=== PATIENT | male | born 1970 | race African-American/Black ===

== ENCOUNTER 2017-10-26 12:04 | Observation (INO) ==
--- NOTE | 2017-10-26 12:42 | Emergency Department Note ---
Disposition Clinical Impression: Chest pain, pleuritic, Shortness of breath Community acquired pneumonia Qualifiers: Laterality: right Lung location: lower lobe of lung Qualified Code(s): J18.1 - Lobar pneumonia, unspecified organism Disposition: Admitted As Inpatient Condition: Good Referrals: Triston José MD [Primary Care Provider] - Forms: ED Satisfaction Letter Time of Disposition: 15:53 SOB HPI - General Chief Complaint: ED Shortness of Breath/Dyspnea Stated Complaint: SOB/CARLA Time Seen by Provider: 10/26/17 12:15 Source: patient, family Limitations: no limitations Nursing Notes Reviewed: Yes Vital Signs Reviewed: Yes - History of Present Illness This is a 47-year-old male who comes to emergency department stating that he became short of breath about 90 minutes prior to arrival. No prior similar symptoms. He also reports pleuritic chest pain that started 90 minutes prior to arrival. No nausea or vomiting. Pt Subjective Complaint: shortness of breath - Related Data Home Medications Medication Instructions Recorded Confirmed Lisinopril 05/26/16 05/26/16 Metformin 05/26/16 Previous Rx's Medication Instructions Recorded Mupirocin [Bactroban Oint] 1 appl NS BID #1 tube 05/26/16 Allergies Allergy/AdvReac Type Severity Reaction Status Date / Time shellfish derived Allergy Rash Verified 10/26/17 12:06 Sulfa (Sulfonamide Allergy Hives Verified 08/31/17 17:20 Antibiotics) All systems ED: reviewed and negative except as stated. Constitutional: Denies: fever, chills, weakness, weight change Eyes: Denies: eye pain, eye discharge, vision change Cardiovascular: Reports: chest pain Respiratory: Reports: dyspnea Gastrointestinal: Denies: abdominal pain, nausea, vomiting, diarrhea, constipation, hematemesis, melena, hematochezia Genitourinary: Denies: urgency, dysuria, frequency, hematuria Musculoskeletal: Denies: back pain, neck pain, arthralgia, myalgia Integumentary: Denies: rash, abrasion, lesions Neurological: Denies: headache, weakness, numbness, paresthesias, confusion, abnormal gait, vertigo Psychiatric: Denies: anxiety, depression, suicidal thoughts, homicidal thoughts , auditory hallucinations, visual hallucinations Endocrine: Reports: as per HPI Hematological/Lymphatic: Denies: easy bleeding, easy bruising Past Medical History - Past Medical History Medical history: Reports: diabetes, hyperlipidemia, hypertension - Social History Smoking Status: Never smoker Smokeless Tobacco Status: No Alcohol use: Reports: none Drug use: Reports: none Physical Exam - General Limitations: no limitations General appearance: alert, in no apparent distress - Head Head exam: atraumatic, normocephalic, normal inspection - Eye Eye exam: Present: normal appearance, PERRL, EOMI - ENT ENT exam: normal exam, normal oropharynx, mucous membranes moist - Neck Neck exam: Present: normal inspection, full ROM, trachea midline - Chest Chest inspection: Present: normal inspection, symmetric chest wall rise - Respiratory Respiratory exam: Present: normal lung sounds bilaterally - Cardiovascular Cardiovascular exam: Present: regular rate, normal rhythm, normal heart sounds - Abdominal Exam Abdominal exam: Present: soft, Non-Tender. Absent: tenderness, distention, guarding, rebound, rigidity - Extremities Exam Extremities exam: Present: normal inspection, full ROM. Absent: tenderness, pedal edema - Neurological Exam Neurological exam: Present: alert, oriented X3 - Psychiatric Psychiatric exam: Present: normal affect, normal mood - Skin Skin exam: Present: warm, dry, intact, normal color Course Course Narrative: This is a 47-year-old male with pleuritic chest pain and shortness of breath started 90 minutes prior to arrival. Concern for either a cardiac or pulmonary etiology. Vital Signs Temperature 97.8 F 10/26/17 12:06 Pulse Rate 97 10/26/17 12:06 Respiratory Rate 20 10/26/17 12:06 Blood Pressure 149/91 10/26/17 12:06 O2 Sat by Pulse Oximetry 97 10/26/17 12:06 Temperature 97.8 F 10/26/17 12:06 Pulse Rate 102 10/26/17 15:25 Respiratory Rate 16 10/26/17 15:05 Blood Pressure 133/84 10/26/17 12:31 O2 Sat by Pulse Oximetry 97 10/26/17 15:25 Oxygen Delivery Oxygen Delivery Nasal Cannula Shortness of Breath/Dyspnea - [facility] Narrative Medical decision making narrative: This is a 47-year-old male with risk factors of hypertension and diabetes with an episode of shortness of breath with pleuritic chest pain. His initial troponin was low His d-dimer was low, making pulmonary embolism unlikely Because of the dominance of his pleuritic pain, a CT chest was obtained which showed no evidence for aortic pathology and lower lobe pneumonitis. Ceftriaxone and doxycycline were given for possible community-acquired pneumonia I discussed his case with the on-call hospitalist, who admitted him for observation for a chest pain rule out. - Lab Data Lab results reviewed: Yes I reviewed the patient's lab results. Lab results narrative: CBC BMP unremarkable troponin low d-dimer low Result diagrams: 10/26/17 12:29 10/26/17 12:29 Lab Results 10/26/17 10/26/17 10/26/17 Range/Units 12:29 12:29 12:29 WBC 10.3 (4.3-11.1) K/mcL RBC 5.47 (4.19-5.50) M/mcL Hgb 14.9 (12.9-16.9) g/dL Hct 44.9 (37.5-50.1) % MCV 82.1 L (83.0-100.0) fL MCH 27.2 L (28.0-33.3) pg MCHC 33.2 (31.6-35.5) g/dL RDW 12.2 (11.5-14.5) % Plt Count 232 (140-400) K/mcL MPV 10.1 (9.4-12.4) fL Immature Gran % 0.2 (0-4) % Seg Neutrophils % 74.6 % Lymphocytes % 17.3 % Monocytes % 6.4 % Eosinophils % 1.3 % Basophils % 0.2 % Neutrophils # 7.7 (1.6-8.9) K/mcL Lymphocytes # 1.8 (0.6-4.6) K/mcL Monocytes # 0.7 (0.0-1.3) K/mcL Eosinophils # 0.1 (0.0-0.6) K/mcL Basophils # 0.0 (0.0-0.2) K/mcL D-Dimer < 215 (0-500) ng/mLFEU Sodium 137 (136-145) mEq/L Potassium 4.0 (3.5-5.1) mEq/L Chloride 104 (98-107) mEq/L Carbon Dioxide 24 (23-29) mEq/L BUN 22 H (6-20) mg/dL Creatinine 1.14 (0.70-1.30) mg/dL Est GFR ( Amer) > 60 (> 60) Est GFR (Non-Af Amer) > 60 (> 60) BUN/Creatinine Ratio 19 (6-26) Glucose 176 H (70-105) mg/dL Calculated Osmolality 292 (280-300) Calcium 10.0 (8.6-10.3) mg/dL Troponin I < 0.03 (< 0.04) ng/mL - Radiology Data Radiology results reviewed: Yes I reviewed the patient's radiology results. CT chest showed possible pneumonitis in the bases of both lungs, no apparent aortic pathology - EKG Data EKG attestation: Yes I reviewed and interpreted this EKG. EKG results narrative: EKG shows sinus, 94 bpm, normal intervals, normal axis, low signal level in leads 2, 3, and aVF, no ST or T-wave abnormality
[2017-10-26 12:50] LABS: Basophils % 0.2 %; Eosinophils # 0.1 K/mcL (0.0-0.6); Eosinophils % 1.3 %; Hematocrit 44.9 % (37.5-50.1); Hemoglobin 14.9 g/dL (12.9-16.9); Immature Granulocytes % 0.2 % (0-4); Lymphocytes # 1.8 K/mcL (0.6-4.6); Lymphocytes % 17.3 %; Mean Corpuscular HGB Conc 33.2 g/dL (31.6-35.5); Mean Corpuscular Hemoglobin 27.2 pg (28.0-33.3); Mean Corpuscular Volume 82.1 fL (83.0-100.0); Mean Platelet Volume 10.1 fL (9.4-12.4); Monocytes # 0.7 K/mcL (0.0-1.3); Monocytes % 6.4 %; Neutrophils # 7.7 K/mcL (1.6-8.9); Platelet Count 232 K/mcL (140-400); Red Blood Count 5.47 M/mcL (4.19-5.50); Red Cell Distribution Width 12.2 % (11.5-14.5); Segmented Neutrophils % 74.6 %
[2017-10-26 13:08] LABS: BUN/Creatinine Ratio 19 (6-26); Blood Urea Nitrogen 22 mg/dL (6-20); Carbon Dioxide 24 mEq/L (23-29); Chloride 104 mEq/L (98-107); Glucose 176 mg/dL (70-105); Osmolality,Calculated 292 (280-300); Sodium 137 mEq/L (136-145); Troponin I < 0.03 ng/mL (< 0.04); eGFR For Non-African Americans > 60 (> 60)
[2017-10-26] MEDS ORDERED: Isovue-370 500 ML INFUS..BTL IV ONE (14:31)
[2017-10-26] MEDS ORDERED: Ipratropium/Albuterol Neb 3 ML IH ONE (14:32)
[2017-10-26] MEDS ORDERED: Doxycycline 100 MG CAPSULE PO ONE (15:32)
[2017-10-26] MEDS ORDERED: cefTRIAXone 1,000 MG in Water for inj. (sterile) 20 ML 10 ML IVP ONE (15:32)
[2017-10-26] MEDS: *HR* Heparin 5,000 UNIT/ML VIAL SQ SCH (21:08)
[2017-10-26] MEDS ORDERED: Dextrose Gel 15 GM/37.5 ML TUBE PO PRN ×2 (21:57)
--- NOTE | 2017-10-26 21:57 | Internal Med History&Physical ---
Date of Encounter: 10/26/17 Time of Encounter: 21:51 Internal Medicine - H&P: HPI Chief complaint: shortness of breath Admitted From: Home Plans for Post Hospital Care: Home History of present illness: Mr. Cantrell is a 47 year old obese male on CPAP with a history of hypertension and diabetes who presented to the emergency department complaining of shortness of breath that started this morning. He reports having had congestion and rhinorhea over the last 2 days as corroborated by his . Although documented as pleuritic chest pain in the ER notes, he states he did not have chest pain per se but a feeling of congestion in his throat. He says it started a few days ago with his CPAP machine not working well and no longer feeling the humidity, as well as having trouble with mask fitting. He denies precordial pain, fever, chills, nausea and vomiting. He denies a history of acute coronary syndrome and cerebrovascular disease. A chest x-ray obtained was non-diagnostic and CT scan showed a left lower lobe opacity suggestive of residual or developing pneumonitis. He was given antibiotics for CAP and admitted or observation. He was seen lying comfortably in bed, stating that he has congestion when taking deep breaths but does not have productive cough. He continues to deny chest pain. Past Med Surg Social Fam HX - Past Medical History Medical history: diabetes, hyperlipidemia, hypertension Psychiatric history: no psych history - Social History Smoking Status: Never smoker Smokeless Tobacco Status: No Alcohol use: none Drug use: none - Family History Mother Living Status: Father Living Status: Still Living Hx Family Cancer: Yes (prostate) Sister Living Status: Hx Family Cancer: Yes (pancreas) Internal Medicine - H&P: Meds Aspirin Enteric Coated [Aspirin EC] 81 mg PO DAILY 10/26/17 [History] Atorvastatin [Lipitor] 10 mg PO HS 10/26/17 [History] Empagliflozin/Linagliptin [Glyxambi 25 mg-5 mg Tablet] 1 tab PO DAILY 10/26/17 [ History] Glimepiride [Amaryl] 2 mg PO DAILY 10/26/17 [History] Ibuprofen [Advil] 200 mg PO DAILY PRN 10/26/17 [History] Lisinopril [Zestril] 20 mg PO DAILY 10/26/17 [History] Metformin HCl [Metformin HCl ER] 2,000 mg PO DAILY 10/26/17 [History] Omeprazole [PriLOSEC] 20 mg PO DAILY PRN 10/26/17 [History] Wheat Dextrin [Benefiber] 1 each PO DAILY 10/26/17 [History] 3 Allergy/AdvReac Type Severity Reaction Status Date / Time shellfish derived Allergy Rash Verified 10/26/17 16:09 Sulfa (Sulfonamide Allergy Hives Verified 10/26/17 16:09 Antibiotics) All Systems PM: A 10-system review of systems was performed and is negative for pertinent findings except as documented above in the HPI. - Constitutional Vitals: Temp Pulse Resp BP Pulse Ox 97.8 F 99 19 119/72 98 10/26/17 20:23 10/26/17 20:23 10/26/17 20:23 10/26/17 20:23 10/26/17 20:23 Exam: Vitals: Reviewed and seem to be within normal limits. General: Obese -Canadian male lying comfortably in bed in no acute distress. Skin: Warm and supple. HEENT: Moist mucous membranes. No conjunctivae pallor. Neck: No lymphadenopathy. No JVD. No carotid bruits. No palpable thyroid. Chest: Normal thoracic expansion. Diminished breath sounds in the base but no wheezing, rales or rhonchi. Heart: Normal S1 & S2; rhythmic. No rubs or murmurs. Abdomen: Obese, soft and non-tender to palpation. Extremities: No clubbing or cyanosis. Neurological: Awake, alert and oriented to person, place and time. No focal deficits. Psych: Adequate affect. Internal Med - H&P Results - Labs CBC & Chem 7: 10/26/17 12:29 10/26/17 12:29 - Assessment and plan (1) Chest pain, pleuritic Current Visit: Yes Status: Acute Assessment and plan: Pulmonary embolism ruled out. May be related to the consolidation seen on imaging which suggests a newly developing process. -Given his comorbidities, will obtain another EKG/troponin to ensure a cardiac process is not masking itself with atypical features especially given his diabetes. -Continue abx for CAP: ceftriaxone/azithromycin daily, send urine legionella and if produces sputum, specimen for culture. (2) Community acquired pneumonia Current Visit: Yes Status: Acute Assessment and plan: As stated above. Qualifiers: Laterality: left Lung location: lower lobe of lung Qualified Code(s): J18.1 - Lobar pneumonia, unspecified organism (3) Hypertension Current Visit: Yes Status: Acute Assessment and plan: Well controlled. -Continue lisinopril daily. -Low salt diet. Qualifiers: Hypertension type: essential hypertension Qualified Code(s): I10 - Essential (primary) hypertension (4) Diabetes Current Visit: Yes Status: Chronic Assessment and plan: Unknown state of biochemical control. On oral agents at home. -Will cover with insulin sliding scale in the interim. -Obtain A1C. Qualifiers: Diabetes mellitus type: type 2 Diabetes mellitus medical terminologist insulin use: without group home use Diabetes mellitus complication status: without complication Qualified Code(s): E11.9 - Type 2 diabetes mellitus without complications (5) Obesity Current Visit: Yes Status: Chronic Assessment and plan: Counseled on therapeutic lifestyle options for weight loss. -May benefit from bariatric evaluation given his BMI with comorbidities. Qualifiers: Obesity type: due to excess calories Obesity classification: adult class 2 (BMI 35 - 39.9) Serious obesity comorbidity presence: with serious comorbidity Body mass index: BMI 38.0-38.9 Qualified Code(s): E66.01 - Morbid (severe) obesity due to excess calories; Z68.38 - Body mass index (BMI) 38.0-38.9, adult (6) Shortness of breath Current Visit: Yes Status: Acute Assessment and plan: Will place on CPAP qhs with respiratory therapist evaluation. (7) DVT prophylaxis Current Visit: Yes Status: Acute Assessment and plan: SubQ heparin ordered. - Time Spent With Patient Total time spent is greater than 50% in coordination of care (as documented) at patient's floor/unit and/or counseling patient: Greater than 35 minutes
[2017-10-26] MEDS: Ipratropium/Albuterol Neb 3 ML IH SCH (22:06)
[2017-10-26] MEDS: Ringers Solution, Lactated 1,000 ML IVC SCH (22:11)
[2017-10-27] MEDS: Ipratropium/Albuterol Neb 3 ML IH SCH ×2 (04:02→09:47)
[2017-10-27] MEDS: Insulin LISPRO 300 UNITS/3 ML VIAL SQ SCH ×3 (04:32→12:51)
[2017-10-27] MEDS: *HR* Heparin 5,000 UNIT/ML VIAL SQ SCH ×2 (06:05→13:33)
[2017-10-27 06:10] LABS: Basophils % 0.2 %; Eosinophils # 0.1 K/mcL (0.0-0.6); Eosinophils % 0.8 %; Hematocrit 42.7 % (37.5-50.1); Hemoglobin 14.2 g/dL (12.9-16.9); Immature Granulocytes % 0.3 % (0-4); Lymphocytes # 2.3 K/mcL (0.6-4.6); Lymphocytes % 24.7 %; Mean Corpuscular HGB Conc 33.3 g/dL (31.6-35.5); Mean Corpuscular Hemoglobin 27.1 pg (28.0-33.3); Mean Corpuscular Volume 81.5 fL (83.0-100.0); Mean Platelet Volume 10.1 fL (9.4-12.4); Monocytes # 0.9 K/mcL (0.0-1.3); Platelet Count 228 K/mcL (140-400); Red Blood Count 5.24 M/mcL (4.19-5.50); Red Cell Distribution Width 12.2 % (11.5-14.5)
--- NOTE | 2017-10-27 06:20 | Electrocardiograph Report ---
[email or web address] Test Date: 2017-10-26 Pat Name: Bola Cantrell Department: 103 Room: 3B48 Gender: M Fagoter: LISY : 1970 Requested By: Stanley Arias Order Number: [id number] Reading MD: Daniel Chamberlain Measurements Intervals [place] Rate: 94 P: 36 [place]: 199 QRS: -16 QRSD: 102 T: 4 QT: 334 QTc: 385 Interpretive Statements SINUS RHYTHM POSSIBLE ANTERIOR MYOCARDIAL INFARCTION [30 ms Q WAVE IN V3/V4, OR R < 0.2 mV IN V4], OF INDETERMINATE AGE POOR R WAVE PROGRESSION Electronically Signed On 10-27-2017 6:18:31 EDT by Daniel Chamberlain
[2017-10-27 06:35] LABS: BUN/Creatinine Ratio 18 (6-26); Blood Urea Nitrogen 16 mg/dL (6-20); Calcium 9.5 mg/dL (8.6-10.3); Carbon Dioxide 21 mEq/L (23-29); Chloride 108 mEq/L (98-107); Glucose 106 mg/dL (70-105); Osmolality,Calculated 288 (280-300); Potassium 3.6 mEq/L (3.5-5.1); Sodium 138 mEq/L (136-145); Troponin I < 0.03 ng/mL (< 0.04); eGFR For Non-African Americans > 60 (> 60)
[2017-10-27 07:14] LABS: Estimated Average Glucose 171 mg/dl; Hemoglobin A1C 7.6 %
[2017-10-27] MEDS: Ringers Solution, Lactated 1,000 ML IVC SCH (07:38)
[2017-10-27] MEDS: Lisinopril 20 MG TABLET PO SCH ×2 (07:40→07:42)
[2017-10-27] MEDS ORDERED: Azithromycin 500 MG in D5% in Water 250 ML IVPB SCH (09:00)
[2017-10-27] MEDS ORDERED: Aspirin Enteric Coated 81 MG Tablet PO SCH (09:00)
[2017-10-27] MEDS ORDERED: cefTRIAXone 1,000 MG in Water for inj. (sterile) 20 ML 10 ML IVP SCH (09:00)
--- NOTE | 2017-10-27 15:07 | Discharge Summary ---
- NOTES TO OUTPATIENT PROVIDER Notes to Outpatient Provider: Treated for CAP, azithromycin for 4 days Orders not resulted at time of discharge: Pending orders 10/27/17 01:34 Legionella Antigen [RM] Routine Date of Encounter: 10/27/17 Time of Encounter: 15:05 - Discharge Diagnosis (1) Chest pain, pleuritic Priority: Secondary Status: Acute (2) Community acquired pneumonia Priority: Primary Status: Acute Qualifiers: Laterality: left Lung location: lower lobe of lung Qualified Code(s): J18.1 - Lobar pneumonia, unspecified organism (3) Hypertension Priority: Secondary Status: Acute Qualifiers: Hypertension type: essential hypertension Qualified Code(s): I10 - Essential (primary) hypertension (4) Shortness of breath Priority: Secondary Status: Acute (5) Diabetes Priority: Secondary Status: Chronic Qualifiers: Diabetes mellitus type: type 2 Diabetes mellitus manager terminal insulin use: without manager terminal use Diabetes mellitus complication status: without complication Qualified Code(s): E11.9 - Type 2 diabetes mellitus without complications (6) Obesity Priority: Secondary Status: Chronic Qualifiers: Obesity type: due to excess calories Obesity classification: adult class 2 (BMI 35 - 39.9) Serious obesity comorbidity presence: with serious comorbidity Body mass index: BMI 38.0-38.9 Qualified Code(s): E66.01 - Morbid (severe) obesity due to excess calories; Z68.38 - Body mass index (BMI) 38.0-38.9, adult Hospital course: Mr. Cantrell is a 47 year old male past medical history of hypertension diabetes hyperlipidemia this is related to the [facility] emergency department complaints of shortness of breath which started this morning. Also complains of congestion and rhinorrhea over the last 2 days. Denies any fever or sputum production. To ER notes he complaints of pleuritic chest pain however he complaints of mostly feeling congestion within his throat. He does have a CPAP machine however he states he feels is not working properly and has had difficulty using at night. He feels it is not fitting properly as well as there is too much humidity and at times he feels he is choking on water from the humidity. Chest x-ray was obtained which was nondiagnostic and CT of chest did show a left lower lobe opacities suggested of residual or developing pneumonia. Patient was initiated on Rocephin and azithromycin and admitted for observation. Overnight patient did not require any oxygen supplementation lab work is unremarkable with no white count no fever overnight. Patient ambulated per nursing in the hallway oxygen saturations maintained around 95-96% during ambulation. ancillary services manager was consulted assist the patient in obtaining new CPAP machine. Advised patient to follow-up with primary care provider since this provider knows him best. He will be discharged home with a prescription of azithromycin 250 mg daily for 4 days. Patient verbalized understanding of discharge instructions. He is hematochezia stable ready for discharge. Discharge discussed with: patient - Time Spent with Patient Total time spent providing and/or coordinating discharge services: - Discharge Medications Prescriptions: Azithromycin [Zithromax] 250 mg PO DAILY #4 tablet Home Medications: Aspirin Enteric Coated [Aspirin EC] 81 mg PO DAILY 10/26/17 [History] Atorvastatin [Lipitor] 10 mg PO HS 10/26/17 [History] Empagliflozin/Linagliptin [Glyxambi 25 mg-5 mg Tablet] 1 tab PO DAILY 10/26/17 [ History] Glimepiride [Amaryl] 2 mg PO DAILY 10/26/17 [History] Ibuprofen [Advil] 200 mg PO DAILY PRN 10/26/17 [History] Lisinopril [Zestril] 20 mg PO DAILY 10/26/17 [History] Metformin HCl [Metformin HCl ER] 2,000 mg PO DAILY 10/26/17 [History] Omeprazole [PriLOSEC] 20 mg PO DAILY PRN 10/26/17 [History] Wheat Dextrin [Benefiber] 1 each PO DAILY 10/26/17 [History] Azithromycin [Zithromax] 250 mg PO DAILY #4 tablet 10/27/17 [Rx] Allergies/Adverse Reactions: 3 Allergy/AdvReac Type Severity Reaction Status Date / Time shellfish derived Allergy Rash Verified 10/26/17 16:09 Sulfa (Sulfonamide Allergy Hives Verified 10/26/17 16:09 Antibiotics) Date of admission: 10/26/17 16:12 Primary care physician: Triston José MD Consults: 10/27/17 07:54 Consult to Helper/Driver [CONS] Routine Reason for SW Consult: cpap at home needs repaired Discharging clinician: Yudelka Fierro Anticipated date of discharge: 10/27/17 - Constitutional Vitals: Temp Pulse Resp BP Pulse Ox 97.7 F 86 18 123/78 95 10/27/17 12:27 10/27/17 12:27 10/27/17 12:27 10/27/17 12:27 10/27/17 12:47 General appearance: Present: A&O X 3, obese - Head Head exam: Present: atraumatic, normocephalic - Eye Eye exam: Present: PERRL, conjuntiva pink, sclera anicteric Pupils: Present: PERRL - Neck Neck exam general surgery: Present: supple, trachea midline. Absent: lymphadenopathy - Respiratory Respiratory exam: Present: CTAB. Absent: accessory muscle use, rales, rhonchi, wheezes - Cardiovascular Cardiovascular exam: Present: RRR, +S1, +S2. Absent: diastolic murmur, gallop, rubs, systolic murmur - GI/Abdominal GI/Abdominal exam: Present: normal bowel sounds, soft, no peritoneal signs. Absent: distended, tenderness - Extremities Exam Extremities exam: Present: warm, radial pulses palpable and symmetrical. Absent : calf tenderness, cyanotic, pedal edema - Neurological Exam Neurological exam: Present: CN II-XII intact, oriented X3, no focal deficits. Absent: pronater drift, facial droop, speech deficit - Skin Skin exam: Present: dry, intact - Patient Status Disposition: Home, Self-Care Condition: Good Functional capacity at discharge: independent ambulation Overall status at discharge: patient is back to baseline - Discharge Instructions Instructions: Chest Pain (DC), Chronic Hypertension (DC), Pneumonia (DC) Follow Up With: Triston José MD [Primary Care Provider] - 11/02/17 10:45 am - Diet and Activity Activity: increase activity as tolerated Diet: advance to your usual diet
[2017-10-27 15:47] VITALS: BP 113/65
[2017-10-27] MEDS ORDERED: Lisinopril 20 MG TABLET PO SCH (21:00)
== END 2017-10-27 16:01 | disposition home or self-care (01) ==
LOC: 3BNU 12:04 → EMEROO 12:04 → 3BNU 16:42
PROVIDERS: ADMIT Hospitalist; ATTEND Hospitalist